=== PATIENT | male | born 1945 | race Caucasian/White ===

== ENCOUNTER 2024-09-28 09:12 | Outpatient (CLI) | payer MEDICARE, SELFPAY | END 2024-09-28 09:13 | disposition home or self-care (01) | PROVIDERS: Visit Provider Family Medicine | DX: R53.83 Other fatigue (principal); R19.01 Right upper quadrant abdominal swelling, mass and lump; Z13.29 Encounter for screening for other suspected endocrine disorder; Z12.5 Encounter for screening for malignant neoplasm of prostate | CPT/HCPCS: 80076; 82607; 84439; 84443; G0103 ==

== ENCOUNTER 2024-10-02 08:32 | Outpatient (CLI) | payer MEDICARE, SELFPAY | END 2024-10-02 08:33 | disposition home or self-care (01) | LOC: CT 08:35 | PROVIDERS: PCP Family Medicine; Visit Provider Family Medicine | DX: R19.01 Right upper quadrant abdominal swelling, mass and lump (principal); D71 Functional disorders of polymorphonuclear neutrophils | CPT/HCPCS: 71260; 74177; Q9967 ==

== ENCOUNTER 2024-10-05 07:06 | Outpatient (CLI) | payer MEDICARE, SELFPAY ==
--- NOTE | 2024-10-05 07:15 | CRLHL7_ITS ---
For Patients: As a result of the Century Cures Act, medical imaging exams and procedure reports are released immediately into your electronic medical record. You may view this report before your referring provider. If you have questions, please contact your health care provider. Indication: Right upper quadrant abdominal pain. Abnormal CT Technique: Sonography of the abdomen was performed limited to the structures discussed below Comparison: The CT of October 02 what he 25 Findings: The gallbladder wall is thickened with intramural edema measuring 7 millimeters. There are too numerous to count stones within the gallbladder including a 9 millimeter stone identified near the gallbladder neck. The common duct measures 7 millimeters which is mildly prominent. There is a sonographic Braden`s sign. There is no definite pericholecystic fluid. Impression: Findings most consistent with acute cholecystitis. Surgical consultation is advised. Dictated by Braden Tran MD @ 10/05/2024 8:08:48 AM (Electronically Signed)
== END 2024-10-05 07:07 | disposition home or self-care (01) ==
LOC: US 07:07
PROVIDERS: PCP Family Medicine; Visit Provider Family Medicine
DX: R10.11 Right upper quadrant pain (principal); K81.9 Cholecystitis, unspecified
CPT/HCPCS: 76705